=== PATIENT | male | born 1950 | race Two or more races ===

== ENCOUNTER 2025-03-08 18:23 | Emergency (ER) | payer MEDICARE, MEDICAID, SELFPAY ==
[2025-03-08 18:24] VITALS: BP 165/83; PULSE 67; RESP 20; TEMP 36.6; O2SAT 96
[2025-03-08 18:26] VITALS: BMI 33.0
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
[2025-03-08 20:34] VITALS: BP 145/76; PULSE 72; RESP 18; TEMP 36.8; O2SAT 98
== END 2025-03-08 20:36 | disposition home or self-care (01) ==
PROVIDERS: Emergency Provider Emergency Medicine; PCP Physician Assistant
DX: S20.219A Contusion of unspecified front wall of thorax, initial encounter (principal); V49.40XA Driver injured in collision with unspecified motor vehicles in traffic accident, initial encounter
CPT/HCPCS: 71045; 99283